=== PATIENT | female | born 2000 | race Hispanic/Latino ===

== ENCOUNTER → 2025-02-19 | Day surgery (SDC) | payer BC ==
[2025-02-14 13:10] LABS: CREATININE, SERUM 0.78 mg/dL (0.57-1.11)
[~2025-02-19] MED LIST: ACETAMINOPHEN 1000 MG/100 ML 100 ML IV ONE; DEXAMETHASONE SOD PHOS INJ 4 MG/ML SDV ONE; FAMOTIDINE 20 MG/2 ML VIAL IV ONE; FENTANYL CITRATE/PF 100MCG/2 ML INJ ONE; GLYCOPYRROLATE INJ 0.2 MG/ML VIAL ONE; KETOROLAC TROMETHAMINE 30 MG/ML VIAL ONE; LIDOCAINE HCL 2% LOCAL INJ 5 ML SDV VIAL INJ ONE; LORYNA 3 MG-0.1 EACH PO; MIDAZOLAM HCL 2 MG/2 ML VIAL ONE; ONDANSETRON HCL INJ 2MG/ML 2ML 2 MG/ML VIAL ONE; PROPOFOL IV EMULSION 10 MG/ML 20 ML VIAL ONE; VOQUEZNA10 MG PO
[2025-02-19] MEDS: CEFAZOLIN SODIUM 2 GM ONE (06:09)
[2025-02-19] MEDS: LACTATED RINGER'S 1,000 ML ONE (06:09)
[2025-02-19 07:46] VITALS: TEMP 97
[2025-02-19] MEDS: MEPERIDINE HCL INJ 25 MG/ML VIAL ONE (07:52)
[2025-02-19 09:00] VITALS: BP 111/76; PULSE 65; RESP 16; O2SAT 97
== END | disposition home or self-care (01) ==
LOC: OR 05:13
PROVIDERS: ATTEND Podiatrist Foot & Ankle Surgery
DX: G57.51 Tarsal tunnel syndrome, right lower limb (principal); I83.91 Asymptomatic varicose veins of right lower extremity; E66.01 Morbid (severe) obesity due to excess calories; K21.9 Gastro-esophageal reflux disease without esophagitis; Z71.89 Other specified counseling; Z01.812 Encounter for preprocedural laboratory examination; Z79.899 Other long term (current) drug therapy
CPT/HCPCS: 28035; 36415; 80048; 81025; 88304; J0131; J1100; J1885; J2003; J2175; J2250; J2405; J2704; J3010; J7121